=== PATIENT | male | born 1970 | race Hispanic/Latino ===

== ENCOUNTER 2018-06-27 08:17 | Observation (INO) | payer BC ==
[2018-06-27] MEDS ORDERED: Aspirin 325 mg EC Tablets PO ONE (09:24)
--- NOTE | 2018-06-27 09:25 | RAD ---
Date of service: 06/27/2018 HISTORY: chest pain COMPARISON: None available. FINDINGS: LUNGS: No active pulmonary disease. PLEURA: No significant pleural effusion identified, no pneumothorax apparent. CARDIOVASCULAR: No aortic atherosclerotic calcification present. Normal cardiac size. No pulmonary vascular congestion. OSSEOUS STRUCTURES: No significant abnormalities. VISUALIZED UPPER ABDOMEN: Normal. OTHER FINDINGS: None. IMPRESSION: No acute cardiopulmonary disease appreciated.
[2018-06-27 09:27] LABS: BASO % 0.3 % (0.0-2.0); EOS # 0.2 K/uL (0.0-0.7); EOS % 2.7 % (0.0-4.0); HEMOGLOBIN 15.6 g/dL (12.0-18.0); LYMPH # 1.7 K/uL (1.0-4.3); LYMPH % 28.1 % (20.0-40.0); MEAN CELL VOLUME 90.7 fl (80.0-94.0); MEAN CORPUSCULAR HEMOGLOBIN 30.6 pg (27.0-31.0); MEAN CORPUSCULAR HGB CONC 33.8 g/dL (33.0-37.0); MEAN PLATELET VOLUME 9.4 fl (7.2-11.7); MONO # 0.6 K/uL (0.0-0.8); MONO % 9.8 % (0.0-10.0); NEUT # 3.5 K/uL (1.8-7.0); NEUT % 59.1 % (50.0-75.0); NRBC % 0.2 % (0.0-0.0); RBC 5.08 Mil/uL (4.40-5.90); RED CELL DISTRIBUTION WIDTH 13.4 % (11.5-14.5); WHITE BLOOD COUNT 5.9 K/uL (4.8-10.8)
[2018-06-27 09:34] LABS: BLOOD UREA NITROGEN 26 mg/dl (9-20); GFR NON-AFRICAN AMERICAN > 60
--- NOTE | 2018-06-27 09:39 | ED PDOC ---
HPI: Chest Pain Time Seen by Provider: 06/27/18 08:36 Chief Complaint (Nursing): Chest Pain Chief Complaint (Provider): Chest pain History Per: Patient History/Exam Limitations: no limitations Onset/Duration Of Symptoms: Hrs Current Symptoms Are (Timing): Gone Now Quality: Pressure Associated Symptoms: denies: Nausea, Dyspnea, Diaphoresis, Syncope Additional History Per: Patient Additional Complaint(s): 47yo male, with history of CAD, 2 coronary stents, hypertension, comes to ER for evaluation of a pressure like chest pain since this morning. Patient states he felt the symptoms while walking to work and reports it was present in his throat as well; he states the symptoms resolved spontaneously. He reports concern as he has had similar symptoms for the past couple days, all with spontaneous resolution. 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 PMD: In [place] Fr[place]: In [place] Past Medical History Reviewed: Historical Data, Nursing Documentation, Vital Signs Vital Signs: Last Vital Signs Temp 97.6 F 06/27/18 08:23 Pulse 70 06/27/18 08:56 Resp 17 06/27/18 08:23 BP 152/81 H 06/27/18 08:23 Pulse Ox 98 06/27/18 08:33 - Medical History PMH: CAD, HTN Denies: Chronic Kidney Disease - Surgical History Surgical History: Coronary Stent (x 2), Hernia Repair - Family History Family History: States: No Known Family Hx - Living Arrangements Living Arrangements: With Family - Social History Current smoker - smoking cessation education provided: No Alcohol: None Drugs: Denies - Immunization History Hx Tetanus Toxoid Vaccination: No Hx Influenza Vaccination: No Hx Pneumococcal Vaccination: No - Home Medications Home Medications: Ambulatory Orders Medication Instructions Recorded Atorvastatin [Lipitor] 80 mg PO DAILY 06/27/18 Ezetimibe [Zetia] 10 mg PO DAILY 06/27/18 RX: Aspirin [Ecotrin] 81 mg PO DAILY 06/27/18 RX: Ramipril [Altace] 2.5 mg PO DAILY 06/27/18 - Allergies Allergies/Adverse Reactions: Allergies Allergy/AdvReac Type Severity Reaction Status Date / Time No Known Allergies Allergy Verified 06/27/18 08:33 BRADLEY Risk Score for UA/NSTEMI - BRADLEY Risk Score Age > 64: NO 3 or more CAD Risk Factors: YES Known CAD (Stenosis greater than 50%): YES Aspirin use in past 7 days: YES Severe Angina: NO EKG ST changes greater than 0.5mm: NO Positive Cardiac Marker: NO BRADLEY Score: 3 Risk %: 13% Wells Criteria for PE - Wells Criteria for Pulmonary Embolism Clinical Signs and Symptoms of DVT: No P.E is #1 Diagnosis, or Equally Likely: No Heart Rate >100: No Immobilization at least 3 days;Surgery previous 4 weeks: No Previous, objectively diagnosed PE or DVT: No Hemoptysis: No Malignancy w/treatment within 6 months, or palliative: No Total Score: 0 Review of Systems ROS Statement: Except As Marked, All Systems Reviewed And Found Negative Constitutional: Negative for: Fever, Chills, Sweats Cardiovascular: Positive for: Chest Pain (pressure) Respiratory: Negative for: Shortness of Breath Gastrointestinal: Negative for: Nausea, Vomiting Physical Exam - Reviewed Nursing Documentation Reviewed: Yes Vital Signs Reviewed: Yes - Physical Exam Appears: Positive for: Non-toxic, No Acute Distress Head Exam: Positive for: ATRAUMATIC, NORMAL INSPECTION, NORMOCEPHALIC Skin: Positive for: Normal Color, Warm, DRY Eye Exam: Positive for: EOMI, Normal appearance, PERRL Neck: Positive for: Normal, Painless ROM, Supple Cardiovascular/Chest: Positive for: Regular Rate, Rhythm, Chest Non Tender. Negative for: Murmur Respiratory: Positive for: Normal Breath Sounds. Negative for: Rales, Rhonchi, Wheezing Pulses-Radial (L): 2+ Pulses-Radial (R): 2+ Gastrointestinal/Abdominal: Positive for: Normal Exam, Soft. Negative for: Tenderness Back: Positive for: Normal Inspection. Negative for: L CVA Tenderness, R CVA Tenderness Extremity: Positive for: Normal ROM Neurologic/Psych: Positive for: Alert, Oriented (x 3) - Laboratory Results Result Diagrams: 06/27/18 09:15 06/27/18 09:15 - ECG ECG: Positive for: Interpreted By Me, Viewed By Me ECG Rhythm: Positive for: Normal QRS, Normal ST Segment, Sinus Bradycardia. Negative for: ST/T Changes Rate: 58 O2 Sat by Pulse Oximetry: 98 (RA) Pulse Ox Interpretation: Normal Medical Decision Making Medical Decision Making: Impression: Chest pressure Differential: Unstable angina, possible NSTEMI, ACS Plan: -- Labs -- CXR -- Aspirin 325mg PO 0921 CXR FINDINGS: LUNGS: No active pulmonary disease. PLEURA: No significant pleural effusion identified, no pneumothorax apparent. CARDIOVASCULAR: No aortic atherosclerotic calcification present. Normal cardiac size. No pulmonary vascular congestion. OSSEOUS STRUCTURES: No significant abnormalities. VISUALIZED UPPER ABDOMEN: Normal. OTHER FINDINGS: None. IMPRESSION: No acute cardiopulmonary disease appreciated. 0937 Labs, CXR reviewed. Patient to be admitted due to chest pain. Discussed with Dr. 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 Plan of care discussed with patient, who is agreeable. 1030 Patient now reports he is unsure if he wishes to stay in the hospital, is requesting time to finalize his decision. 1300 Discussed with patient regarding his wish to leave AMA, but now he states he is agreeable to stay in hospital. Case discussed with Dr. Tran, who will follow up with patient. Scribe Attestation: Documented by Namrata Houston acting as a scribe for Chelo Mccormick MD Provider Attestation: All medical record entries made by the Scribe were at my direction and personally dictated by me. I have reviewed the chart and agree that the record accurately reflects my personal performance of the history, physical exam, medical decision making, and the department course for this patient. I have also personally directed, reviewed, and agree with the discharge instructions and disposition. Disposition - Clinical Impression Clinical Impression: Chest pain - Patient ED Disposition Is Patient to be Admitted: Yes Discussed With : Lazaro Kathleen Doctor Will See Patient In The: Hospital Counseled Patient/Family Regarding: Studies Performed, Diagnosis - Disposition Disposition Time: 09:37 Condition: FAIR - Pt Status Changed To: Hospital Disposition Of: Observation - POA Present On Arrival: None
[2018-06-27 10:02] LABS: B-TYPE NATRIURETIC PEPTIDE 46.1 pg/ml (0-450)
[2018-06-27 10:08] LABS: PROTHROMBIN TIME 11.2 Seconds (9.8-13.1)
[2018-06-27 10:11] LABS: PARTIAL THROMBOPLASTIN TIME 33.5 Seconds (25.6-37.1)
--- NOTE | 2018-06-27 15:15 | CARD ---
APPROVED REPORT Date of service: 06/27/2018 EKG Measurement Heart [id number] CO [id number] [id number] <Conclusion> Sinus bradycardia Otherwise normal ECG
[2018-06-27 16:45] LABS: LDL CHOLESTEROL 44 mg/dL (0-129)
--- NOTE | 2018-06-27 17:32 | CP.PCM.PCO ---
Assessment/Plan - Assessment and Plan (Free Text) Assessment: Patient seen and examined upon admission to [facility]. Patient denies chest pain shortness of breath nausea or vomiting. EKG reviewed, NSR. Troponins x 2 ordered for this afternoon. DIscussed plan with Dr Yanez, asa given in ER, lovenox ordered. Plan for cardiac cath tomorrow 2pm at [facility] Patient made aware of plan of care. Dr Kathleen called and made aware of plan. Will cont to monitor patient. - Date & Time Time: 15:00
[2018-06-27 17:58] LABS: HDL CHOLESTEROL 36 MG/DL (30-70)
--- NOTE | 2018-06-27 20:00 | CP.PCM.HP ---
History of Present Illness - History of Present Illness History of Present Illness: CC: chest pain. 47 y/o M, PMHx: HTN, CAD with Cardiac stent x2. 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 No associated symptoms. 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 Worsening symptoms: Found with Bradycardia HR: 53 on EKG. Troponin today 0 .4520 Pt with Hx of same episode of chest pressure in the past. Aggravated factor: Exertion Pt denied: Fever, chills, n/v/d, abdominal pain, headache, CP, syncope, SOB, cough, sick contact, recent travel out of [facility]. CXR: No acute cardiopulmonary disease. EKG: Sinus Bradycardia Present on Admission - Present on Admission Any Indicators Present on Admission: No Review of Systems - Constitutional Constitutional: Other (negative) - EENT Eyes: Other (negative) Ears: Other (negative) Nose/Mouth/Throat: Other (negative) - Cardiovascular Cardiovascular: Chest Pain, Slow Heart Rate - Respiratory Respiratory: Other (negative) - Gastrointestinal Gastrointestinal: Other (negative) - Genitourinary Genitourinary: Other (negtaive) - Musculoskeletal Musculoskeletal: Other (negative) - Integumentary Integumentary: Other (negative) - Neurological Neurological: Other (negative) - Psychiatric Psychiatric: Other (negative) - Endocrine Endocrine: Other (negative) - Hematologic/Lymphatic Hematologic: Other (negative) Past Patient History - Past Medical History & Family History Past Medical History?: No Pertinent Family History: Unknown - Past Social History Smoking Status: Never Smoked Alcohol: None Drugs: Denies Home Situation {Lives}: With Family - CARDIAC Hx Cardiac Disorders: Yes (CAD stent, 3 CATHS,) - PULMONARY Hx Respiratory Disorders: No - NEUROLOGICAL Hx Neurological Disorder: No - HEENT Hx HEENT Problems: No - RENAL Hx Chronic Kidney Disease: No - ENDOCRINE/METABOLIC Hx Endocrine Disorders: No - HEMATOLOGICAL/ONCOLOGICAL Hx Blood Disorders: No - INTEGUMENTARY Hx Dermatological Problems: No - MUSCULOSKELETAL/RHEUMATOLOGICAL Hx Musculoskeletal Disorders: No Hx Falls: No - GASTROINTESTINAL Hx Gastrointestinal Disorders: No - GENITOURINARY/GYNECOLOGICAL Hx Genitourinary Disorders: No - PSYCHIATRIC Hx Psychophysiologic Disorder: No Hx Substance Use: No - SURGICAL HISTORY Hx Surgeries: Yes Hx Coronary Stent: Yes (x 2) - ANESTHESIA Hx Anesthesia: Yes Hx Anesthesia Reactions: No Hx Malignant Hyperthermia: No Meds Allergies/Adverse Reactions: Allergies Allergy/AdvReac Type Severity Reaction Status Date / Time No Known Allergies Allergy Verified 06/27/18 08:33 Physical Exam - Constitutional Appears: No Acute Distress - Head Exam Head Exam: NORMAL INSPECTION - Eye Exam Eye Exam: PERRL - ENT Exam ENT Exam: Normal Exam - Neck Exam Neck exam: Positive for: Normal Inspection - Respiratory Exam Respiratory Exam: NORMAL BREATHING PATTERN - Cardiovascular Exam Cardiovascular Exam: REGULAR RHYTHM - GI/Abdominal Exam GI & Abdominal Exam: Normal Bowel Sounds, Soft - Extremities Exam Extremities exam: Positive for: normal inspection - Back Exam Back exam: NORMAL INSPECTION - Neurological Exam Neurological exam: Alert, Oriented x3 Additional comments: No motor/sensory deficit - Psychiatric Exam Psychiatric exam: Normal Mood - Skin Skin Exam: Normal Color, Warm Results - Vital Signs Recent Vital Signs: Last Vital Signs Temp 97.8 F 06/27/18 18:23 Pulse 56 L 06/27/18 18:23 Resp 20 06/27/18 18:23 BP 110/73 06/27/18 18:23 Pulse Ox 96 06/27/18 18:23 reviewed Betty - Labs Result Diagrams: 06/27/18 09:15 06/27/18 09:15 Labs: Laboratory Results - last 24 hr 06/27/18 06/27/18 06/27/18 09:15 09:15 09:15 WBC 5.9 RBC 5.08 Hgb 15.6 Hct 46.1 MCV 90.7 MCH 30.6 MCHC 33.8 RDW 13.4 Plt Count 194 MPV 9.4 Neut % (Auto) 59.1 Lymph % (Auto) 28.1 [place] % (Auto) 9.8 Eos % (Auto) 2.7 Baso % (Auto) 0.3 Neut # (Auto) 3.5 Lymph # (Auto) 1.7 [place] # (Auto) 0.6 Eos # (Auto) 0.2 Baso # (Auto) 0.0 PT 11.2 INR 1.0 APTT 33.5 Sodium 140 Potassium 4.5 Chloride 99 Carbon Dioxide 26 Anion Gap 20 BUN 26 H Creatinine 1.2 Est GFR ( Amer) > 60 Est GFR (Non-Af Amer) > 60 Random Glucose 97 Calcium 10.0 Troponin I 0.0280 NT-Pro-B Natriuret Pep 46.1 Triglycerides Cholesterol LDL Cholesterol Direct HDL Cholesterol 06/27/18 06/27/18 14:52 15:18 WBC RBC Hgb Hct MCV MCH MCHC RDW Plt Count MPV Neut % (Auto) Lymph % (Auto) [place] % (Auto) Eos % (Auto) Baso % (Auto) Neut # (Auto) Lymph # (Auto) [place] # (Auto) Eos # (Auto) Baso # (Auto) PT INR APTT Sodium Potassium Chloride Carbon Dioxide Anion Gap BUN Creatinine Est GFR ( Amer) Est GFR (Non-Af Amer) Random Glucose Calcium Troponin I 0.4520 H* NT-Pro-B Natriuret Pep Triglycerides 48 Cholesterol 85 LDL Cholesterol Direct 44 HDL Cholesterol 36 reviewed J.P. - EKG Data EKG comments: reviewed J.P. - Imaging and Cardiology Chest x-ray Status: Report reviewed by me (J.P.) Assessment & Plan (1) Chest pain Status: Acute Priority: High (2) Stented coronary artery Status: Chronic Priority: Medium (3) Elevated troponin Status: Acute (4) CAD (coronary artery disease) Status: Chronic Priority: Medium (5) HTN (hypertension) Status: Chronic Priority: Low - Assessment and Plan (Free Text) Plan: Pt on Ecotrin, Altace, Lopressor, Lovenox, Plavix, Zetia, Scheduled by Cardiology, Dr. Tran for Cardiac Cath tomorrow at [facility]. - Date & Time Date: 06/27/18 Time: 20:00
--- NOTE | 2018-06-27 20:23 | CARD ---
APPROVED REPORT Date of service: 06/27/2018 EXAM: Two-dimensional and M-mode echocardiogram with Doppler and color Doppler. Other Information Quality : GoodRhythm : NSR INDICATION Chest Pain Surgery/Intervention Status/Post Intervention: Stent 2D DIMENSIONS IVSd0.90 (0.7-1.1cm)LVDd4.34 (3.9-5.9cm) LVOT Diameter2.02 (1.8-2.4cm)PWd0.81 (0.7-1.1cm) IVSs1.18 (0.8-1.2cm)LVDs2.71 (2.5-4.0cm) FS (%) 37.5 %PWs1.01 (0.8-1.2cm) M-Mode DIMENSIONS Left Atrium (MM)3.78 (2.5-4.0cm)IVSd1.03 (0.7-1.1cm) Aortic Root2.37 (2.2-3.7cm)LVDd4.74 (4.0-5.6cm) Aortic Cusp Exc.1.70 (1.5-2.0cm)PWd0.95 (0.7-1.1cm) IVSs1.29 cmFS (%) 24 % LVDs3.60 (2.0-3.8cm)PWs1.24 cm Aortic Valve AoV Peak Eeuylneb497.5cm/sAoV VTI30.3cmAO Peak GR.7mmHg LVOT Peak Dwqivrre822.4cm/sLVOT VTI21.70cmAO Mean GR.4mmHg JEFF (VMAX)1.04dx6CVS (VTI)1.21cm2 Mitral Valve MV E Tqqrssbb86.2cm/sMV DECEL MLJT124mbBK A Qftmsort69.4cm/s MV WLA66xyQ/A ratio1.2MVA (PHT)4.47cm2 TDI Lateral E' Peak V14.50cm/sMedial E' Peak V10.92cm/sE/Lateral E'5.5 E/Medial E'7.3 LEFT VENTRICLE The left ventricle is normal size. There is normal left ventricular wall thickness. The left ventricular systolic function is normal. The estimated ejection fraction is 55-60% No regional wall motion abnormalities noted.. The left ventricular diastolic function is normal. No left ventricle thrombus noted on this study. There is no ventricular septal defect visualized. There is no left ventricular aneurysm. There is no mass noted in the left ventricle. RIGHT VENTRICLE The right ventricle is normal size. There is normal right ventricular wall thickness. The right ventricular systolic function is normal. ATRIA The left atrium size is normal. The right atrium size is normal. The interatrial septum is intact with no evidence for an atrial septal defect. AORTIC VALVE The aortic valve is normal in structure. No aortic regurgitation is present. There is no aortic valvular stenosis. There is no aortic valvular vegetation. MITRAL VALVE The mitral valve is normal in structure. There is no evidence of mitral valve prolapse. There is no mitral valve stenosis. There is no mitral valve regurgitation noted. TRICUSPID VALVE The tricuspid valve is normal in structure. There is no tricuspid valve regurgitation noted. There is no tricuspid valve prolapse or vegetation. There is no tricuspid valve stenosis. PULMONIC VALVE The pulmonary valve is normal in structure. There is no pulmonic valvular regurgitation. There is no pulmonic valvular stenosis. GREAT VESSELS The aortic root is normal in size. The ascending aorta is normal in size. The pulmonary artery is normal. The IVC is normal in size and collapses >50% with inspiration. PERICARDIAL EFFUSION There is no pericardial effusion. There is no pleural effusion. <Conclusion> The estimated ejection fraction is 55-60% The left ventricular diastolic function is normal. There is no tricuspid valve regurgitation noted. The IVC is normal in size and collapses >50% with inspiration.
--- NOTE | 2018-06-27 21:09 | CARD ---
APPROVED REPORT Date of service: 06/27/2018 EKG Measurement Heart [id number]-4 [id number] <Conclusion> Sinus bradycardia Otherwise normal ECG
[2018-06-27] MEDS: Enoxaparin 80 mg Syringe SC SCH (21:17)
--- NOTE | 2018-06-28 01:09 | CON ---
DATE: 06/27/2018 CRITICAL CARE CONSULTATION LOCATION: The patient in room 426. TIME SPENT: 35 minutes. The patient is seen, evaluated at the bedside. Past medical, surgical, family and social history reviewed. HISTORY OF PRESENT ILLNESS: A 47-year-old male, reformed smoker with a history significant for hypertension, coronary artery disease, status post cardiac catheterization 8 years ago with one stent and two angioplasties, unclear details, has been on aspirin, beta rajni, statin and ramipril. The patient had a repeat catheterization a year ago, reportedly normal followed by a stress test a year ago, it was also normal. He has been in his usual state until the last week, experienced some pain, midsternal with radiation to the neck, associated with mild dyspnea, more so on exertion, relieved with rest. No paroxysmal nocturnal dyspnea or orthopnea. Denies fever, chills, phlegm or cough. No trauma to the chest, has been compliant with his medications, came to emergency room for evaluation. In ER, the patient's vital signs; temperature 97.6, heart rate 70, respiratory rate 17, blood pressure 152/81, pulse oximetry 98%. EKG showed sinus bradycardia, otherwise, unremarkable. Admitted to telemetry. Seen by instructional designer, Dr. Tran, requested for observation in the ICU to evaluate for ongoing chest pain. Initial troponin is reported to be positive with the initial troponin 0.02, repeat is 0.4520. Otherwise, review of systems unremarkable. PAST SURGICAL HISTORY: Negative. CURRENT MEDICATIONS: Include aspirin 81 mg daily, Lipitor 80 mg daily, Plavix 75 mg daily, Lovenox 70 mg subcu every 12 hours, Zetia 10 mg daily, Lopressor 12.5 mg every 12 hours, ramipril 2.5 mg daily. ALLERGIES: NONE DOCUMENTED. FAMILY HISTORY: Noncontributory. SOCIAL HISTORY: Reformed smoker. Social EtOH. No recreational drug use. PHYSICAL EXAMINATION: GENERAL: A middle aged, well-built male in no distress. VITAL SIGNS: Temperature 98.4, heart rate 74, respiratory rate 18, blood pressure 124/74, saturation 99% on room air. HEAD, EYES, EARS, NOSE, THROAT: Pupils reactive. Conjunctivae pink. Sclerae are white. NECK: Supple. Trachea is central. CHEST: Bilateral breath sounds. Clear to auscultation. HEART: Rhythm regular. S1, S2 normal intensity. No S3 or S4 gallop. No audible murmur. ABDOMEN: Bowel sounds present. Soft. Liver and spleen not palpable. Bladder not distended. EXTREMITIES: No clubbing, cyanosis, or edema. NEUROLOGIC: Nonfocal. DIAGNOSTIC DATA: Electrocardiogram: Sinus bradycardia, otherwise unremarkable. Chest x-ray: No acute infiltrate. LABORATORY DATA: WBC 5.9, hemoglobin 15.6, hematocrit 46.1, MCV 90.7, platelet count of 194. PT 11.2, INR 1, PTT 33.5. SMA-7: Sodium 140, potassium 4.5, chloride 99, CO2 of 26, blood urea nitrogen 26, creatinine 1.2, calcium 10, troponin 0.028, second 0.4520. ProBNP 46.1, cholesterol 85, LDL of 44, HDL 36, triglycerides 48. IMPRESSION: A 47-year-old male, reformed smoker with hypertension, history of coronary artery disease, status post stent x1, angioplasty x2 with exertional pain associated with shortness of breath. Electrocardiogram, sinus bradycardia. Troponin trending up, remains pain-free. PLAN: Continue with current medications. Seen by Dr. Tran, scheduled for cardiac catheterization tomorrow. We will start the patient on normal saline in the morning prior to the catheterization. Keep head of bed at 30 degrees up. Currently on Lovenox, therapeutic, for DVT prophylaxis. No acid reflux. We will hold off the PPI. Fuad Medellin MD
--- NOTE | 2018-06-28 06:58 | CON ---
DATE: 06/27/2018 CHIEF COMPLAINT: Chest pain. HISTORY OF PRESENT ILLNESS: The patient is a 47-year-old male who has history of coronary artery disease, underwent coronary artery stenting some 7 years ago in [facility]. The patient stated he underwent stress test last year, which was okay. The patient has been experiencing exertional chest pain for the past one week. The patient usually walks [address] his work and at this time he had to stop because of severe chest pain, excessive shortness of breath and had to come to the emergency room. The patient since he came to the emergency room, his mind was fluctuating about leaving against medical advice or staying and finally he was convinced by the ER physician to stay in the hospital and I had to come and evaluate the patient on an urgent basis. SOCIAL HISTORY: The patient is a nonsmoker. He is an occasional drinker. MEDICATIONS: Altace 2.5 mg once a day, aspirin 81 mg once a day, Lipitor 80 mg once a day, Lopressor 12.5 mg once a day, subcutaneous Lovenox 70 mg twice a day, Plavix 75 mg once a day, Zetia 10 mg once a day. REVIEW OF SYSTEMS: No fever or chills. No nausea or vomiting. No dizziness or syncope. PHYSICAL EXAMINATION: GENERAL: The patient is a middle-aged male who does not appear to be in acute distress. VITAL SIGNS: Blood pressure 124/74, heart rate 74, temperature 98.4, respirations 18. HEENT: Normocephalic. NECK: No JVD. CHEST: Clear. HEART: S1 and S2 regular. No gallop or rub. ABDOMEN: Soft. EXTREMITIES: No edema. No calf tenderness. LABORATORY DATA: CBC: WBC 5.5, hemoglobin 15.6, hematocrit 46.1, platelet count 294,000. PT 11.2, INR 1, PTT 33.5. SMA-7: Sodium 140, potassium , chloride 99, CO2 26, glucose 97, BUN 26, creatinine 1.2. First set troponin is negative. is within normal limits. DIAGNOSTIC DATA: Initial EKG revealed sinus bradycardia at the rate of 55 with early repolarization pattern. Subsequent EKG revealed a similar picture. Chest x-ray: No official report. There is no acute cardiopulmonary disease appreciated. ASSESSMENT: 1. Unstable angina, rule out myocardial infarction. 2. History of coronary artery disease, status post coronary artery stenting 7 years ago. RECOMMENDATION: Case was discussed with the patient and his partner in the emergency room. The patient was emphasize the fact that he needs to be admitted and have a cardiac catheterization as early as tomorrow. The procedure is successfully explained. At any time the patient decides to change his mind, he has to sign against medical advice. 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 I will continue with current Altace 2.5 mg twice a day, aspirin 81 mg once a day, Lipitor 80 mg once a day, Lopressor 12.5 mg twice a day, therapeutic subcutaneous Lovenox at 70 mg twice a day, Plavix 75 mg once a day, Zetia 10 mg once a day. Routine echocardiogram and urine for drug screen. The patient is scheduled for cardiac catheterization for tomorrow at [facility]. Natalio Tran MD
[2018-06-28 08:29] LABS: BARBITURATES, UR NEGATIVE (NEGATIVE); BENZODIAZEPINES, UR NEGATIVE (NEGATIVE); OPIATES, UR NEGATIVE (NEGATIVE); PHENCYCLIDINE, UR NEGATIVE (NEGATIVE)
[2018-06-28 08:37] VITALS: RESP 17; TEMP 98
[2018-06-28] MEDS: Enoxaparin 80 mg Syringe SC SCH (09:21)
[2018-06-28 10:09] VITALS: BP 125/75; PULSE 63; O2SAT 97
== END 2018-06-28 17:58 | disposition short-term general hospital (02) ==
LOC: H.ER 08:17 → H.ERHOLD 09:37 → H.TEL 14:24 → H.ICU/CCU 18:14
PROVIDERS: ADMIT Internal Medicine Pulmonary Disease; ATTEND Internal Medicine Pulmonary Disease
DX: R07.9 Chest pain, unspecified (principal); I10 Essential (primary) hypertension; I25.110 Atherosclerotic heart disease of native coronary artery with unstable angina pectoris; Z95.5 Presence of coronary angioplasty implant and graft; Z87.891 Personal history of nicotine dependence
CPT/HCPCS: 36415; 71045; 80048; 80061; 83880; 84484; 85025; 85610; 85730; 87081; 93005; 93306; 99284; G0378; G0480; J1650